=== PATIENT | male | born 1990 | race Two or more races ===

== ENCOUNTER 2023-10-02 00:18 | Emergency (ER) | payer SELFPAY ==
[~2023-10-02] VITALS: Ht 188 cm; Wt 200.0 kg
[2023-10-02 00:18] VITALS: BP 129/82; PULSE 75; RESP 16; O2SAT 100
[2023-10-02 02:05] LABS: Basophils # (auto) 0 10 ^3/uL (0-0.2); Basophils % (auto) 0.3 % (0.0-2.0); Eosinophils # (auto) 0.2 10 ^3/uL (0-0.8); Eosinophils % (auto) 2.3 % (0.0-7.0); Hemoglobin 15.9 g/dL (13.5-17.5); Lymphocytes # (auto) 1.4 10 ^3/uL (0.4-5.4); Lymphocytes % (auto) 13.5 % (10.0-50.0); Mean Corpuscular Hemoglobin 31.9 pg (28.0-32.0); Mean Corpuscular Hgb Conc. 33.8 g/dL (32.0-36.0); Mean Corpuscular Volume 94.4 fL (80.0-100.0); Monocytes # (auto) 0.5 10 ^3/uL (0-1.3); Monocytes % (auto) 4.8 % (0.0-12.0); Neutrophils # (auto) 7.9 10 ^3/uL (1.6-8.6); Neutrophils % (auto) 79.1 % (37.0-80.0); Nucleated Red Blood Cells % 0.1 %; Red Blood Cells 4.98 10^6/uL (4.5-5.90); Red Cell Distribution Width 13.7 % (11.8-14.3)
[2023-10-02 02:12] LABS: Alanine Aminotransferase 71 U/L (7-40); Albumin 4.5 g/dL (3.2-4.8); Alkaline Phosphatase 101 U/L (46-116); Anion Gap 8 (5-15); Aspartate Aminotransferase 54 U/L (13-40); BUN/Creatinine Ratio 8.4 (10.0-20.0); Blood Urea Nitrogen 11 mg/dL (9-23); Calcium 9.7 mg/dL (8.7-10.4); Carbon Dioxide 28 mmol/L (20-30); Chloride 100 mmol/L (98-107); Glucose 202 mg/dL (74-106); Lipase 46 U/L (12-53); Potassium 3.8 mmol/L (3.5-5.1); Sodium 136 mmol/L (136-145)
[2023-10-02 02:13] LABS: Bilirubin, Total 0.4 mg/dL (0.2-1.0)
== END 2023-10-02 07:27 | disposition left against medical advice (07) ==
LOC: EDBD 00:18 → ER 00:18
DX: R10.30 Lower abdominal pain, unspecified (principal); K59.00 Constipation, unspecified; R11.0 Nausea; Z53.21 Procedure and treatment not carried out due to patient leaving prior to being seen by health care provider
CPT/HCPCS: 36415; 80053; 83690; 85025